=== PATIENT | female | born 1990 | race Caucasian/White ===

== ENCOUNTER 2023-09-22 07:29 | Emergency (ER) | payer OTHER ==
[~2023-09-22] VITALS: Ht 172.7 cm; Wt 117.9 kg
[2023-09-22 07:34] VITALS: BP 138/83; PULSE 68; RESP 16; TEMP 98.9; O2SAT 100
[2023-09-22 08:15] VITALS: BP 136/79; PULSE 87; RESP 16; TEMP 97.8; O2SAT 99
== END 2023-09-22 08:15 | disposition home or self-care (01) ==
LOC: MED 07:29
DX: I10 Essential (primary) hypertension (principal); R11.0 Nausea
CPT/HCPCS: 81025; 99282

== ENCOUNTER 2024-01-08 07:51 | Emergency (ER) | payer OTHER ==
[~2024-01-08] VITALS: Ht 170.2 cm; Wt 123.8 kg
[2024-01-08 07:52] VITALS: BP 148/89; PULSE 82; RESP 18; TEMP 97.8; O2SAT 100
[2024-01-08] MEDS ORDERED: IBUP-2213 PO (09:04)
[2024-01-08] MEDS: KETOROLAC 60 MG/2 ML VIAL IM ONE (09:16)
[2024-01-08 09:30] VITALS: BP 148/89; PULSE 82; RESP 18; TEMP 97.8; O2SAT 100
== END 2024-01-08 09:30 | disposition home or self-care (01) ==
LOC: MED 07:51
DX: M25.512 Pain in left shoulder (principal); F12.90 Cannabis use, unspecified, uncomplicated; W18.39XA Other fall on same level, initial encounter; Y92.89 Other specified places as the place of occurrence of the external cause; Y93.89 Activity, other specified; Y99.8 Other external cause status
CPT/HCPCS: 73030; 81025; 96372; 99283; J1885; Q0092